=== PATIENT | male | born 1965 | race Caucasian/White ===

== ENCOUNTER → 2017-10-08 | Outpatient (CLI) | payer OTHER ==
--- NOTE | 2017-10-08 14:57 | KCIC ---
Indication: Hypercalcemia. Time of exam 2:34 PM No prior studies are available for comparison. There are changes of median sternotomy. The heart size is normal. The lungs are clear. No infiltrate, effusion or pneumothorax is identified. IMPRESSION: No acute cardiopulmonary process is detected. Electronically signed by: Teto Alexis MD (10/08/2017 2:54 PM) [id number]
== END | disposition home or self-care (01) ==
LOC: KCIC 14:29
PROVIDERS: ATTEND Internal Medicine Nephrology
DX: E83.52 Hypercalcemia (principal); Z90.5 Acquired absence of kidney
CPT/HCPCS: 71020